=== PATIENT | female | born 1990 | race Caucasian/White ===

== ENCOUNTER 2021-01-23 10:17 | Emergency (ER) | payer MEDICAID, OTHER ==
[~2021-01-23] VITALS: Ht 154.9 cm; Wt 72.6 kg
[~2021-01-23 10:17] MED LIST: PREN1TAB80 PO
[2021-01-23 10:39] LABS: APPEARANCE,URINE CLOUDY (CLEAR); BILIRUBIN,URINE SMALL (NEGATIVE); COLOR,URINE YELLOW (YELLOW); GLUCOSE, URINE (UA) NEGATIVE (NEGATIVE); KETONES,URINE 5 mg/dL (NEGATIVE); LEUKOCYTE ESTERASE ,URINE NEGATIVE (NEGATIVE); NITRATE,URINE POSITIVE (NEGATIVE); OCCULT BLOOD,URINE NEGATIVE (NEGATIVE); PH,URINE 6.5 (5.0-8.0); PROTEIN,URINE TRACE mg/dL (NEGATIVE)
[2021-01-23 10:48] LABS: RBC,URINE 0-1 /HPF (0-1)
[2021-01-23 10:49] LABS: BACTERIA,URINE Many /HPF (None Seen); MUCUS,URINE Moderate LPF (None Seen); SQUAMOUS EPITHELIAL CELL,UR Few /HPF (0-2)
[2021-01-23 10:52] LABS: HCG,QUAL RESULT NEGATIVE (NEGATIVE)
[2021-01-23] MEDS ORDERED: ONDA4TAB10 PO (11:59)
[2021-01-23] MEDS ORDERED: MACR100 PO (11:59)
[2021-01-23 12:43] VITALS: BP 111/72
== END 2021-01-23 12:43 | disposition home or self-care (01) ==
LOC: EDH 10:17
DX: N30.00 Acute cystitis without hematuria (principal); Z79.899 Other long term (current) drug therapy
CPT/HCPCS: 81001; 81025; 87077; 87088; 87186

== ENCOUNTER 2021-02-20 14:35 | Emergency (ER) | payer MEDICAID, OTHER ==
[~2021-02-20] VITALS: Ht 154.9 cm; Wt 68.0 kg
[~2021-02-20 14:35] MED LIST changes: +MACR100 PO; +ONDA4TAB10 PO
[2021-02-20] MEDS ORDERED: FLUORESCEIN SODIUM 1 STRIP STRIP OP SCH (15:00)
[2021-02-20] MEDS ORDERED: TETRACAINE HCL 0.5% 4 ML OPHTH SOLN OP SCH (15:00)
[2021-02-20] MEDS ORDERED: 0.9% NACL 500ML IV.SOLN 500 ML IV ONE (15:30)
[2021-02-20] MEDS ORDERED: GENTAMICIN SULFATE 0.3% 5ML DROPS OD SCH (16:00)
[2021-02-20] MEDS ORDERED: TETANUS/DIPHTHERIA TOXOID [ADULT] 0.5 ML VIAL IM ONE (16:00)
[2021-02-20] MEDS ORDERED: GENTAMICIN SULFATE 0.3% 5ML DROPS ONE (16:07)
[2021-02-20 16:12] VITALS: BP 116/73
[2021-02-21] MEDS ORDERED: ERYT1OIN7 OD (02:22)
== END 2021-02-20 16:19 | disposition home or self-care (01) ==
LOC: EDH 14:35
DX: S05.01XA Injury of conjunctiva and corneal abrasion without foreign body, right eye, initial encounter (principal); Z79.899 Other long term (current) drug therapy; X58.XXXA Exposure to other specified factors, initial encounter; Y93.89 Activity, other specified; Y92.89 Other specified places as the place of occurrence of the external cause; Y99.8 Other external cause status
CPT/HCPCS: 99283; J7040

== ENCOUNTER 2021-02-21 00:43 | Emergency (ER) | payer MEDICAID ==
[~2021-02-21] VITALS: Ht 154.9 cm; Wt 70.3 kg
[2021-02-21] MEDS ORDERED: TETRACAINE HCL 0.5% 4 ML OPHTH SOLN ONE (01:18)
[2021-02-21] MEDS ORDERED: TETRACAINE HCL 0.5% 4 ML OPHTH SOLN OP ONE (01:30)
[2021-02-21] MEDS ORDERED: FLUORESCEIN SODIUM 1 STRIP STRIP ONE (01:55)
[2021-02-21 02:09] VITALS: BP 116/77
[2021-02-21] MEDS ORDERED: IBUPROFEN 600 MG TABLET ONE (02:13)
[2021-02-21] MEDS ORDERED: ACETAMINOPHEN 500 MG TABLET ONE (02:13)
[2021-02-21] MEDS ORDERED: ACETAMINOPHEN WITH CODEINE 1 TAB TAB ONE (02:14)
[2021-02-21] MEDS ORDERED: ERYTHROMYCIN BASE 0.5% OPHTH OINT 1 GM TUBE ONE (02:14)
[2021-02-21] MEDS ORDERED: ERYT1OIN7 OD (02:22)
[2021-02-21] MEDS ORDERED: ACETAMINOPHEN WITH CODEINE 1 TAB TAB PO ONE (02:30)
[2021-02-21] MEDS ORDERED: IBUPROFEN 600 MG TABLET PO ONE (02:30)
[2021-02-21] MEDS ORDERED: ACETAMINOPHEN 500 MG TABLET PO ONE (02:30)
[2021-02-21] MEDS ORDERED: ERYTHROMYCIN BASE 0.5% OPHTH OINT 1 GM TUBE OD ONE (02:30)
== END 2021-02-21 02:27 | disposition home or self-care (01) ==
LOC: EDH 00:43
DX: S05.01XA Injury of conjunctiva and corneal abrasion without foreign body, right eye, initial encounter (principal); Z79.1 Long term (current) use of non-steroidal anti-inflammatories (NSAID); Z79.899 Other long term (current) drug therapy; X58.XXXA Exposure to other specified factors, initial encounter; Y93.89 Activity, other specified; Y92.89 Other specified places as the place of occurrence of the external cause; Y99.8 Other external cause status

== ENCOUNTER 2021-08-16 19:41 | Emergency (ER) | payer MEDICAID ==
[~2021-08-16] VITALS: Ht 154.9 cm; Wt 67.6 kg
[~2021-08-16 19:41] MED LIST changes: +ERYT1OIN7 OD
[2021-08-16 19:42] VITALS: BP 124/75
[2021-08-16] MEDS ORDERED: IBUPROFEN 600 MG TABLET PO ONE (21:00)
[2021-08-16] MEDS ORDERED: IBUP-2070 PO (21:55)
== END 2021-08-16 22:13 | disposition home or self-care (01) ==
LOC: EDH 19:41
DX: J02.9 Acute pharyngitis, unspecified (principal); Z20.822 Contact with and (suspected) exposure to COVID-19; Z79.899 Other long term (current) drug therapy
CPT/HCPCS: 87635; 87804 ×2; 87880; 99283; C9803

== ENCOUNTER 2022-06-11 13:51 | Emergency (ER) | payer MEDICAID ==
[~2022-06-11] VITALS: Ht 154.9 cm; Wt 65.8 kg
[~2022-06-11 13:51] MED LIST changes: +IBUP-2070 PO
[2022-06-11 14:47] LABS: BASOPHILS % (AUTO) 0.5 % (0.0-5.0); EOSINOPHILS % (AUTO) 0.7 % (0.0-8.0); HEMATOCRIT 47.8 % (36-48); LYMPHOCYTES % (AUTO) 31.4 % (21.0-51.0); MEAN CORPUSCULAR HGB CONC 31.6 g/dL (32.0-36.0); MEAN CORPUSCULAR VOLUME 88.5 fL (79-99); MONOCYTES % (AUTO) 5.7 % (3.0-13.0); NEUTROPHILS % (AUTO) 61.4 % (40.0-77.0); PLATELET COUNT (AUTO) 230 K/uL (130-400); RED CELL DISTRIBUTION WIDTH 11.9 % (11.0-15.5); WHITE BLOOD COUNT (AUTO) 7.6 K/uL (4.8-10.8)
[2022-06-11 14:56] LABS: APPEARANCE,URINE CLOUDY (CLEAR); BILIRUBIN,URINE NEGATIVE (NEGATIVE); COLOR,URINE YELLOW (YELLOW); GLUCOSE, URINE (UA) NEGATIVE (NEGATIVE); HCG,QUALITATIVE URINE NEGATIVE (NEGATIVE); KETONES,URINE NEGATIVE (NEGATIVE); LEUKOCYTE ESTERASE ,URINE 75 Leu/uL (NEGATIVE); NITRATE,URINE 2+ (NEGATIVE); PROTEIN,URINE 20 mg/dL (NEGATIVE); UROBILINOGEN,URINE 0.2 mg/dL (0.2-1.0)
[2022-06-11 14:58] LABS: POTASSIUM 3.8 mmol/L (3.5-5.1)
[2022-06-11 15:02] LABS: BACTERIA,URINE MOD /HPF (None Seen); MUCUS,URINE MOD LPF (None Seen); SQUAMOUS EPITHELIAL CELL,UR FEW /HPF (0-2); YEAST,URINE BUDDING FEW /HPF (None Seen)
[2022-06-11 15:02] LABS: ALBUMIN 4.5 g/dL (3.5-5.0); TOTAL PROTEIN, SERUM 8.1 g/dL (6.0-8.3)
[2022-06-11] MEDS ORDERED: DICL100T85 PO (16:58)
[2022-06-11] MEDS ORDERED: SULF1TAB42 PO (16:58)
[2022-06-11 17:50] VITALS: BP 120/74
== END 2022-06-11 17:58 | disposition home or self-care (01) ==
LOC: EDH 13:51
DX: M77.12 Lateral epicondylitis, left elbow (principal); N39.0 Urinary tract infection, site not specified; Z79.1 Long term (current) use of non-steroidal anti-inflammatories (NSAID)
CPT/HCPCS: 36415; 80053; 81001; 81025; 85025; 87077; 87088; 87186

== ENCOUNTER 2022-06-20 10:43 | Emergency (ER) | payer MEDICAID ==
[~2022-06-20] VITALS: Ht 170.2 cm; Wt 65.8 kg
[~2022-06-20 10:43] MED LIST changes: +DICL100T85 PO; +SULF1TAB42 PO
[2022-06-20 11:19] LABS: BASOPHILS % (AUTO) 0.6 % (0.0-5.0); EOSINOPHILS % (AUTO) 1.1 % (0.0-8.0); HEMATOCRIT 42.9 % (36-48); LYMPHOCYTES % (AUTO) 32.7 % (21.0-51.0); MEAN CORPUSCULAR HGB CONC 31.2 g/dL (32.0-36.0); MEAN CORPUSCULAR VOLUME 89.7 fL (79-99); NEUTROPHILS % (AUTO) 59.3 % (40.0-77.0); PLATELET COUNT (AUTO) 207 K/uL (130-400); RED BLOOD CELL COUNT(AUTO) 4.78 MIL/uL (4.00-5.50); RED CELL DISTRIBUTION WIDTH 12.1 % (11.0-15.5); WHITE BLOOD COUNT (AUTO) 6.2 K/uL (4.8-10.8)
[2022-06-20 11:30] LABS: CREATININE 0.9 mg/dL (0.5-1.5); POTASSIUM 4.2 mmol/L (3.5-5.1)
[2022-06-20 11:34] LABS: ALBUMIN 3.7 g/dL (3.5-5.0); TOTAL PROTEIN, SERUM 6.9 g/dL (6.0-8.3)
[2022-06-20 11:59] LABS: B-TYPE NATRIURETIC PEPTIDE 28 pg/mL (0-100)
[2022-06-20 13:04] VITALS: BP 114/68
== END 2022-06-20 13:02 | disposition home or self-care (01) ==
LOC: EDH 10:43
DX: M79.89 Other specified soft tissue disorders (principal); Z79.1 Long term (current) use of non-steroidal anti-inflammatories (NSAID)
CPT/HCPCS: 36415; 80053; 81025; 83880; 85025; 93971

== ENCOUNTER 2023-02-02 13:06 | Emergency (ER) | payer BC, MEDICAID ==
[~2023-02-02] VITALS: Ht 154.9 cm; Wt 60.8 kg
[2023-02-02 15:23] LABS: RAPID GROUP A STREP negative (NEGATIVE)
[2023-02-02 15:30] LABS: SARS-CoV-2, RNA, NAAT NEGATIVE SARS CoV-2 (NEGATIVE)
[2023-02-02 15:32] LABS: INFLUENZA TYPE A Negative For Type A (NEGATIVE); INFLUENZA TYPE B Negative For Type B (NEGATIVE)
[2023-02-02 18:11] VITALS: BP 118/72; PULSE 64; RESP 17; O2SAT 100
== END 2023-02-02 18:14 | disposition home or self-care (01) ==
LOC: EDH 13:06
DX: B34.9 Viral infection, unspecified (principal); Z20.822 Contact with and (suspected) exposure to COVID-19
CPT/HCPCS: 99283; 87635; 87880; 87804 ×2; C9803

== ENCOUNTER 2023-02-21 09:09 | Emergency (ER) | payer BC, MEDICAID ==
[~2023-02-21] VITALS: Ht 154.9 cm; Wt 60.8 kg
[2023-02-21 10:58] LABS: BASOPHILS # (AUTO) 0.03 K/uL (0.00-0.20); BASOPHILS % (AUTO) 0.3 % (0.0-5.0); EOSINOPHILS # (AUTO) 0.02 K/uL (0.00-0.70); EOSINOPHILS % (AUTO) 0.2 % (0.0-8.0); HEMATOCRIT 43.1 % (36-48); IMMATURE GRANULOCYTE ABSOLUTE 0.03 K/uL (0-1); LYMPHOCYTES # (AUTO) 1.6 K/uL (1.0-4.8); LYMPHOCYTES % (AUTO) 14.3 % (21.0-51.0); MEAN CORPUSCULAR HEMOGLOBIN 28.8 pg (27.0-33.0); MEAN CORPUSCULAR HGB CONC 32.3 g/dL (32.0-36.0); MEAN CORPUSCULAR VOLUME 89.4 fL (79-99); MONOCYTES # (AUTO) 0.5 K/uL (0.1-1.0); MONOCYTES % (AUTO) 4.3 % (3.0-13.0); NEUTROPHILS # (AUTO) 9.1 K/uL (1.8-7.7); NEUTROPHILS % (AUTO) 80.6 % (40.0-77.0); PLATELET COUNT (AUTO) 265 K/uL (130-400); RED BLOOD CELL COUNT(AUTO) 4.82 MIL/uL (4.00-5.50); RED CELL DISTRIBUTION WIDTH 11.7 % (11.0-15.5); WHITE BLOOD COUNT (AUTO) 11.2 K/uL (4.8-10.8)
[2023-02-21 11:09] LABS: CREATININE 0.8 mg/dL (0.5-1.5); POTASSIUM 4.1 mmol/L (3.5-5.1)
[2023-02-21 11:55] VITALS: BP 132/78; PULSE 76; RESP 18; O2SAT 98
== END 2023-02-21 12:04 | disposition home or self-care (01) ==
LOC: EDH 09:09
DX: O46.91 Antepartum hemorrhage, unspecified, first trimester (principal); R10.2 Pelvic and perineal pain; Z3A.01 Less than 8 weeks gestation of pregnancy
CPT/HCPCS: 36415; 76801; 80048; 84702; 85025; 86900; 86901

== ENCOUNTER 2023-03-07 14:00 | Emergency (ER) | payer BC, MEDICAID ==
[~2023-03-07] VITALS: Ht 154.9 cm; Wt 60.3 kg
[2023-03-07 15:11] LABS: BASOPHILS # (AUTO) 0.03 K/uL (0.00-0.20); BASOPHILS % (AUTO) 0.3 % (0.0-5.0); EOSINOPHILS # (AUTO) 0.01 K/uL (0.00-0.70); EOSINOPHILS % (AUTO) 0.1 % (0.0-8.0); HEMATOCRIT 41.8 % (36-48); IMMATURE GRANULOCYTE ABSOLUTE 0.04 K/uL (0-1); LYMPHOCYTES # (AUTO) 1.5 K/uL (1.0-4.8); LYMPHOCYTES % (AUTO) 12.9 % (21.0-51.0); MEAN CORPUSCULAR HEMOGLOBIN 28.8 pg (27.0-33.0); MEAN CORPUSCULAR HGB CONC 32.8 g/dL (32.0-36.0); MONOCYTES # (AUTO) 0.8 K/uL (0.1-1.0); MONOCYTES % (AUTO) 7.1 % (3.0-13.0); NEUTROPHILS # (AUTO) 9.1 K/uL (1.8-7.7); NEUTROPHILS % (AUTO) 79.3 % (40.0-77.0); PLATELET COUNT (AUTO) 190 K/uL (130-400); RED BLOOD CELL COUNT(AUTO) 4.75 MIL/uL (4.00-5.50); RED CELL DISTRIBUTION WIDTH 11.9 % (11.0-15.5); WHITE BLOOD COUNT (AUTO) 11.5 K/uL (4.8-10.8)
[2023-03-07 16:11] LABS: ADD UA MICROSCOPIC YES; APPEARANCE,URINE CLEAR (CLEAR); BILIRUBIN,URINE NEGATIVE (NEGATIVE); COLOR,URINE LIGHT-YELLOW (YELLOW); GLUCOSE, URINE (UA) NEGATIVE (NEGATIVE); KETONES,URINE NEGATIVE (NEGATIVE); LEUKOCYTE ESTERASE ,URINE 250 Leu/uL (NEGATIVE); NITRATE,URINE NEGATIVE (NEGATIVE); OCCULT BLOOD,URINE MODERATE (NEGATIVE); PROTEIN,URINE NEGATIVE (NEGATIVE); UROBILINOGEN,URINE 0.2 mg/dL (0.2-1.0)
[2023-03-07 16:30] LABS: BACTERIA,URINE RARE /HPF (None Seen); SQUAMOUS EPITHELIAL CELL,UR RARE /HPF (0-2); WBC,URINE 26-50 /HPF (0-1)
[2023-03-07 17:21] VITALS: BP 118/75; PULSE 72; RESP 18; O2SAT 99
[2023-03-07] MEDS ORDERED: CEPH500B PO (17:30)
[2023-03-07] MEDS ORDERED: CEPHALEXIN 500 MG CAPSULE PO ONE (17:30)
== END 2023-03-07 17:41 | disposition home or self-care (01) ==
LOC: EDH 14:00
DX: O20.9 Hemorrhage in early pregnancy, unspecified (principal); O23.41 Unspecified infection of urinary tract in pregnancy, first trimester; N39.0 Urinary tract infection, site not specified; R10.2 Pelvic and perineal pain; Z3A.01 Less than 8 weeks gestation of pregnancy
CPT/HCPCS: 36415; 76801; 81001; 84702; 85025; 86900; 86901; 87077; 87088; 87186

== ENCOUNTER 2023-03-19 12:28 | Emergency (ER) | payer MEDICAID ==
[~2023-03-19] VITALS: Ht 154.9 cm; Wt 60.3 kg
[~2023-03-19 12:28] MED LIST changes: +CEPH500B PO
[2023-03-19 13:07] LABS: BASOPHILS # (AUTO) 0.03 K/uL (0.00-0.20); BASOPHILS % (AUTO) 0.3 % (0.0-5.0); EOSINOPHILS # (AUTO) 0.02 K/uL (0.00-0.70); EOSINOPHILS % (AUTO) 0.2 % (0.0-8.0); HEMATOCRIT 40.3 % (36-48); IMMATURE GRANULOCYTE ABSOLUTE 0.05 K/uL (0-1); LYMPHOCYTES # (AUTO) 1.9 K/uL (1.0-4.8); LYMPHOCYTES % (AUTO) 19.5 % (21.0-51.0); MEAN CORPUSCULAR HEMOGLOBIN 28.7 pg (27.0-33.0); MEAN CORPUSCULAR HGB CONC 32.5 g/dL (32.0-36.0); MEAN CORPUSCULAR VOLUME 88.4 fL (79-99); MONOCYTES # (AUTO) 0.6 K/uL (0.1-1.0); MONOCYTES % (AUTO) 6.1 % (3.0-13.0); NEUTROPHILS # (AUTO) 7.2 K/uL (1.8-7.7); NEUTROPHILS % (AUTO) 73.4 % (40.0-77.0); PLATELET COUNT (AUTO) 224 K/uL (130-400); RED BLOOD CELL COUNT(AUTO) 4.56 MIL/uL (4.00-5.50); RED CELL DISTRIBUTION WIDTH 12.3 % (11.0-15.5); WHITE BLOOD COUNT (AUTO) 9.9 K/uL (4.8-10.8)
[2023-03-19 13:16] LABS: CREATININE 0.7 mg/dL (0.5-1.5); POTASSIUM 3.7 mmol/L (3.5-5.1)
[2023-03-19 13:21] LABS: ALBUMIN 3.5 g/dL (3.5-5.0); BILIRUBIN,TOTAL 0.3 mg/dL (0.2-1.0); TOTAL PROTEIN, SERUM 7.4 g/dL (6.0-8.3)
[2023-03-19 13:47] LABS: APPEARANCE,URINE CLEAR (CLEAR); BILIRUBIN,URINE NEGATIVE (NEGATIVE); COLOR,URINE LIGHT-YELLOW (YELLOW); GLUCOSE, URINE (UA) NEGATIVE (NEGATIVE); KETONES,URINE NEGATIVE (NEGATIVE); LEUKOCYTE ESTERASE ,URINE 500 Leu/uL (NEGATIVE); NITRATE,URINE NEGATIVE (NEGATIVE); OCCULT BLOOD,URINE SMALL (NEGATIVE); PROTEIN,URINE NEGATIVE (NEGATIVE); UROBILINOGEN,URINE 0.2 mg/dL (0.2-1.0)
[2023-03-19 13:53] LABS: HCG,QUALITATIVE URINE POSITIVE (NEGATIVE)
[2023-03-19 13:56] LABS: ADD UA MICROSCOPIC YES
[2023-03-19 13:58] LABS: BACTERIA,URINE RARE /HPF (None Seen); MUCUS,URINE RARE LPF (None Seen); SQUAMOUS EPITHELIAL CELL,UR FEW /HPF (0-2); WBC,URINE 51-100 /HPF (0-1)
[2023-03-19] MEDS ORDERED: AMOX1TAB16 PO (14:19)
[2023-03-19] MEDS ORDERED: LACT20PA6 PO (14:19)
[2023-03-19 14:44] VITALS: BP 128/74; PULSE 88; RESP 18; O2SAT 99
== END 2023-03-19 14:52 | disposition home or self-care (01) ==
LOC: EDH 12:28
DX: O23.41 Unspecified infection of urinary tract in pregnancy, first trimester (principal); O26.891 Other specified pregnancy related conditions, first trimester; K59.00 Constipation, unspecified; R10.2 Pelvic and perineal pain; Z3A.10 10 weeks gestation of pregnancy; Z79.899 Other long term (current) drug therapy
CPT/HCPCS: 36415; 80053; 81001; 81025; 83690; 84702; 85025; 87077; 87088; 87186

== ENCOUNTER 2023-06-08 17:55 | Emergency (ER) | payer BC, MEDICAID ==
[~2023-06-08] VITALS: Ht 154.9 cm; Wt 59.9 kg
[~2023-06-08 17:55] MED LIST changes: +AMOX1TAB16 PO; +LACT20PA6 PO
[2023-06-08 18:03] VITALS: BP 101/63; PULSE 104; RESP 20; O2SAT 97
[2023-06-08 18:56] LABS: BASOPHILS # (AUTO) 0.01 K/uL (0.00-0.20); BASOPHILS % (AUTO) 0.2 % (0.0-5.0); IMMATURE GRANULOCYTE ABSOLUTE 0.03 K/uL (0-1); LYMPHOCYTES # (AUTO) 0.8 K/uL (1.0-4.8); LYMPHOCYTES % (AUTO) 13.4 % (21.0-51.0); MEAN CORPUSCULAR HGB CONC 33.2 g/dL (32.0-36.0); MEAN CORPUSCULAR VOLUME 87.6 fL (79-99); MONOCYTES # (AUTO) 0.4 K/uL (0.1-1.0); MONOCYTES % (AUTO) 6.2 % (3.0-13.0); NEUTROPHILS % (AUTO) 79.7 % (40.0-77.0); PLATELET COUNT (AUTO) 146 K/uL (130-400); RED BLOOD CELL COUNT(AUTO) 4.34 MIL/uL (4.00-5.50); RED CELL DISTRIBUTION WIDTH 12.4 % (11.0-15.5); WHITE BLOOD COUNT (AUTO) 6.3 K/uL (4.8-10.8)
[2023-06-08 18:58] LABS: APPEARANCE,URINE CLOUDY (CLEAR); BILIRUBIN,URINE NEGATIVE (NEGATIVE); COLOR,URINE YELLOW (YELLOW); GLUCOSE, URINE (UA) NEGATIVE (NEGATIVE); KETONES,URINE 5 mg/dL (NEGATIVE); LEUKOCYTE ESTERASE ,URINE 500 Leu/uL (NEGATIVE); NITRATE,URINE 2+ (NEGATIVE); OCCULT BLOOD,URINE NEGATIVE (NEGATIVE); PROTEIN,URINE 30 mg/dL (NEGATIVE)
[2023-06-08 19:01] LABS: ADD UA MICROSCOPIC YES
[2023-06-08 19:04] LABS: CREATININE 0.7 mg/dL (0.5-1.0); POTASSIUM 3.3 mmol/L (3.5-5.1)
[2023-06-08 19:05] LABS: AMPHET/METH SCREEN,URINE NEGATIVE (NEGATIVE); BARBITURATE SCREEN, URINE NEGATIVE (NEGATIVE); BENZODIAZEPINES SCREEN,URINE NEGATIVE (NEGATIVE); CANNABINOID SCREEN,URINE NEGATIVE (NEGATIVE); COCAINE SCREEN,URINE NEGATIVE (NEGATIVE); OPIATE SCREEN,URINE NEGATIVE (NEGATIVE); PHENCYCLIDINE SCREEN,URINE NEGATIVE (NEGATIVE)
[2023-06-08] MEDS: 0.9%NACL 1000ML 1,000 ML IV ONE (19:05)
[2023-06-08 19:07] LABS: BACTERIA,URINE MOD /HPF (None Seen); MUCUS,URINE MOD LPF (None Seen); SQUAMOUS EPITHELIAL CELL,UR MOD /HPF (0-2); UNCLASSIFIED CRYSTAL 1 /HPF (None Seen); WBC,URINE 51-100 /HPF (0-1)
[2023-06-08 19:09] LABS: BILIRUBIN,TOTAL 0.2 mg/dL (0.2-1.0); TOTAL PROTEIN, SERUM 7.3 g/dL (6.0-8.3)
[2023-06-08] MEDS ORDERED: MACR100 PO (21:14)
[2023-06-08] MEDS: CEFTRIAXONE 1G VIAL IVPB ONE (21:20)
[2023-06-08] MEDS: POTASSIUM BICARB/CIT AC 25 MEQ TABLET.EFF PO ONE (21:20)
== END 2023-06-08 22:11 | disposition home or self-care (01) ==
LOC: EDH 17:55
DX: N39.0 Urinary tract infection, site not specified (principal); R42 Dizziness and giddiness; G43.909 Migraine, unspecified, not intractable, without status migrainosus
CPT/HCPCS: 99284; 96365; 96361; 80053; 80305; 84703; 85025; 87077; 87088; 87186; 81001; 36415; J7030; J0696